=== PATIENT | female | born 2005 | race Caucasian/White ===

== ENCOUNTER 2024-09-12 13:06 | Outpatient (AMB) | payer OTHER, SELFPAY ==
--- NOTE | 2024-09-12 13:08 | MHC.PC.OV ---
Vital Signs 09/12/24 13:23 Height 5 ft 6 in Weight 229 lb BMI 37.0 BP 118/71 Blood Pressure Location Rt brachial Position Sitting Respiration 16 Pulse 68 Pulse Source Pulse Oximeter Temp 98.2 F Temp Source Oral Pulse Oximetry (%) 98 Oxygen Delivery Method Room Air Intake Visit Reasons: Requesting PE Intake Note: patient here for new patient visit Sustainability Engineer Required: No Is last menstrual period known: Yes Last menstrual period: 08/23/24 Post menopausal: No Patient : No Allergies No Known Allergies Allergy (Verified 09/12/24 13:41) Medication List - Last Reviewed 09/12/24 by Mabel Dent MA albuterol sulfate 90 mcg/actuation 2 puffs inhalation Q4-6H PRN budesonide-formoterol 160-4.5 mcg/actuation (Breyna) 2 puffs inhalation BID Tobacco use date assessed: 09/12/24 Dental Screening Dental Screen Date: 09/12/24 Did you have a dental visit in the last 12 months?: Yes Did you have a dental problem in the last 6 months where you did not have access to dental care?: No Was dental information given to patient?: Patient has dentist HPI HPI Comments History of Present Illness Details 19-year-old female, accompanied by her mother, presents to [facility]. Prior PCP? - [facility] Last office visit/CPE/labs - 2020- 2021 Acute issue(s) - Asthma: She is albuterol rescue inhaler and on Breyna puffs twice daily. - Reports anxiety and depressive symptoms. She notes bouts of not being motivated, sadness, loneliness, and anxiousness, worrying. Her symptoms have been ongoing for the past 10 years. She has never been diagnosed of anxiety and depression. She denies hospitalization for anxiety or depression. She notes h/o SI between ages [age]; No current SI. No HI. She has been talking to a therapist biweekly since 12/2023. She will continue therapy and not currently interested in pharmacotherapy for anxiety and depression. Myopia: Wears prescription glasses. Past Medical History - Autistic disorder, asthma, myopia Surgical History - None Family History - Dad: Asthma, bipolar, depression, anxiety, ADHD - MGF: Diabetes, alcohol abuse, substance abuse Social History - Nonsmoker. Does not vape. Drinks 1-2 mixed drink less than monthly. Consumes 5 mg of cannabis edible weekly - Has been making healthy dietary choices. Walks daily. Generally sleep well - she has not been sexually active for the past 2 months and has no concern for STDs Health maintenance - Last eye exam was 2 years ago at [facility]. Advised to follow up for an eye exam. She will sign a release for her her PCP to obtain her ophthalmology record - Last dental visit was over a year ago; encouraged to schedule an appointment with his dentist for routine dental care. - Unknown tetanus vaccine status. Health record not available; will review once become available - Has not been vaccinated for the flu this season; declines vaccination [facility] Medical History (Updated 09/12/24 @ 16:51 by Mars Myles CNP) Depression Anxiety Autistic disorder Asthma Family History (Updated 09/12/24 @ 14:30 by Mabel Dent MA) Maternal Grandfather Alcohol abuse Substance abuse Diabetes Father Mental illness in member of household Asthma Psychiatric disorder Bipolar 1 disorder Depression Anxiety ADHD Brother Asthma Sister Asthma Psychiatric disorder Social History Housing: Apartment Patient Tobacco Use Status: Never used Tobacco e-Cigarette/Vaping Use: Never Used Second Hand Smoke Exposure: No service: No Current occupational status: employed and student Current occupation: [employer] Current occupational exposures/hazards: No Cognitive needs: No Hearing needs: No Vision needs: Yes Female Reproductive History Menstrual Date of last menstrual period: 08/23/24 Questionnaire PHQ-9 Over the last 2 weeks, how often have you been bothered by any of the following problems? 1. Little interest or pleasure in doing things: several days 2. Feeling down, depressed, or hopeless: several days 3. Trouble falling or staying asleep, or sleeping too much: several days 4. Feeling tired or having little energy: several days 5. Poor appetite or overeating: several days 6. Feeling bad about yourself - or that you are a failure or have let yourself or your family down: several days 7. Trouble concentrating on things, such as reading the newspaper or watching television: several days 8. Moving or speaking so slowly that other people could have noticed. Or the opposite - being so fidgety or restless that you have been moving around a lot more than usual: several days 9. Thoughts that you would be better off or of hurting yourself in some way: not at all Total score: 8 Depression Screening Interpretation: Positive Depression Screening Done: Yes 01288 - PHQ-9 Billing: Yes Source: Developed by Drs. Holger Gallegos, Shiloh Kapoor, Chacho Tanner and colleagues, with an educational bartolo from [employer]. Thrive Questionnaire Date Thrive assessed: 09/12/24 I am a: Patient What is your living situation today?: I have a steady place to live Within the past 12 months, did the food you bought not last and you didn't have the money to get more?: Never true Within the past 12 months, did you worry whether your food would run out before you got money to buy more?: Never true Do you have trouble paying for medicines?: No Do you have trouble getting transportation to medical appointments?: No Do you have trouble paying your heating and electricity bill?: No Do you have trouble taking care of your child, family member or friend?: No Do you have trouble with day-to-day activities such as bathing, preparing meals, shopping, managing finances, etc.?: No Are you currently unemployed and looking for a job?: No Are you interested in more education?: Yes Please select the resources that you would like help with: None Currently or been in a relationship where the following occur: No concerns reported THRIVE Score: 0 AUDIT C Alcohol Use Questionnaire (AUDIT-C) 1. How often do you have a drink containing alcohol?: Monthly or less 2. How many drinks containing alcohol do you have on a typical day when you are drinking?: 3 or 4 3. How often do you have six or more drinks on one occasion?: Never Total Score: 2 Score Reviewed/Action Taken: Yes CIARRA-7 AMB Questionnaire CIARRA-7 Date CIARRA - 7 assessed: 09/12/24 Feeling nervous, anxious, or on edge: 1 = Several days Not being able to stop or control worryin = Several days Worrying too much about different things: 1 = Several days Trouble relaxin = Several days Being so restless that it is hard to sit still: 1 = Several days Becoming easily annoyed or irritable: 1 = Several days Feeling afraid as if something awful might happen: 1 = Several days Total CIARRA-7 score (0-4 normal; 5-9 mild; 10-14 moderate; 15-21 severe): 7 Source: Developed by Drs. Holger Gallegos, Shiloh Kapoor, Chacho Tanner and colleagues, with an educational bartolo from [employer]. CIARRA-7 Assessment Billing CIARRA-7 Assessment Tool: CIARRA-7 Assessment 83596 ACT Questionnaire In the past 4 weeks, how much of the time did your asthma keep you from getting as much done at work, school or at home?: None of the time During the past 4 weeks, how often have you had shortness of breath?: Not at all During the past 4 weeks, how often did your asthma symptoms wake you up at night or earlier than usual in the morning?: Not at all During the past 4 weeks, how often have you had to use your rescue inhaler or nebulizer medication?: Not at all How would you rate your asthma control during the past 4 weeks?: Completely controlled ACT Interpretation: Negative Score: 25 Review of Systems Const Details: Denies chills, Denies fatigue, Denies fever(s), Denies headache(s) and Denies weakness HEENT Denies change in vision, Denies dizziness, Denies headache(s), Denies hearing loss, Denies nasal congestion, Denies sinus pain, Denies sinus pressure and Denies sore throat Card Denies chest pain, Denies lightheadedness, Denies dyspnea and Denies other (palpitations) Resp Denies cough, Denies dyspnea and Denies wheezing GI Denies abdominal pain, Denies melena, Denies hematochezia, Denies change in bowel habits, Denies dyspepsia and Denies nausea Denies hematuria and Denies dysuria Musc Denies abnormal gait, Denies myalgias, Denies arthralgias, Denies numbness and Denies tingling Skin/Breast Denies rash, Denies unusual bruising and Denies wounds Neuro Denies abnormal gait, Denies dizziness, Denies headache(s), Denies memory loss, Denies numbness, Denies Sensory deficit (Neuro), Denies tingling and Denies weakness Psych Denies anxiety, Denies depression and Denies memory loss Endo Denies cold intolerance, Denies fatigue, Denies heat intolerance, Denies polydipsia and Denies polyuria Miki/Lymph Denies easy bleeding and Denies easy bruising Aller/Immun Denies wheezing Physical exam (Primary Care) Vital Signs: Last Vital Signs Temp 98.2 F 09/12/24 13:23 Pulse 68 09/12/24 13:23 Resp 16 09/12/24 13:23 BP 118/71 09/12/24 13:23 Pulse Ox 98 09/12/24 13:23 Oxygen Delivery Method Room Air 09/12/24 13:23 BMI result Body Mass Index 37.0 Tobacco/Smoking Status: Tobacco use Status Tobacco use date assessed 09/12/24 09/12/24 13:22 Patient Tobacco Use Status Never used Tobacco 09/12/24 13:22 e-Cigarette/Vaping Use Never Used 09/12/24 13:22 PHQ-9: PHQ-9 Score PHQ-9: Total score 8 09/12/24 14:30 Depression Screening Interpretation: Positive Thrive Assessment: Date of Thrive Assessment Date Thrive assessed 09/12/24 09/12/24 13:09 Currently or been in a relationship where the following occur: No concerns reported Const Other: General: no acute distress, well developed, alert and awake Nutritional Appearance: well nourished Orientation/consciousness: patient oriented x3 HENMT Head: Yes normocephalic and Yes atraumatic Ears: hearing grossly normal bilaterally and TM's normal bilaterally General nose exam: Normal external nose present and Normal nares present Mouth: Normal oral and palatal mucosa present and moist mucous membranes Teeth and gingiva: dentition normal Throat: Yes oropharynx normal Eyes Pupils: Equal, round and reactive pupils present and Pupil accommodation reflex normal EOM: EOMs intact bilaterally Neck Neck: Yes normal visual inspection, Yes no lymphadenopathy and Yes trachea midline Thyroid: Thyroid normal Carotids: no bruits Lymphatic: no lymphadenopathy noted Chest Chest palpation & inspection: normal inspection of the chest Resp Effort & Inspection: normal respiratory effort Auscultation: clear to auscultation bilaterally Cardio Rate: regular rate Rhythm: regular rhythm Heart sounds: S1 normal heart sound present, S2 normal heart sound present, no gallops, no murmurs and no rubs Bruits: no abdominal aortic bruits and no carotid bruits GI Palpation (GI): No Abdominal aortic bruit present, Soft to palpation, nontender, No hepatosplenomegaly present and No Rebound tenderness present Auscultation: normal bowel sounds General: Yes no CVA tenderness Back/Spine/Pelvis Back: no CVA tenderness Cervical Spine: cervical ROM normal and No Cervical spine tenderness Thoracic/Lumbar Spine: thoraco-lumbar ROM normal, No pain with thoraco-lumbar ROM, No thoracic spinal tenderness and No lumbar spinal tenderness Skin General: warm and dry. Normal skin color. Normal skin turgor Lesions: no lesions Rashes: no rashes Trauma: no lacerations or abrasions Wounds: no wounds Nails: normal Neuro General: patient oriented x3, gait normal and CN's II-XI intact bilaterally Cranial nerves: Yes Equal, round and reactive pupils present Cognition (Neuro): normal cognition Gait exam (Neuro): Normal gait present Motor exam (neuro): 5/5 motor strength present throughout Sensory Exam: No Sensory deficit (Neuro) Deep tendon reflexes (DTR's): Right patellar reflex intensity grade: 2+ and Left patellar reflex intensity grade: 2+ Extrem General: Yes normal to inspection, No edema and No calf tenderness Psych Appearance: grossly normal Affect: normal affect Attitude: cooperative Thought process: Normal thought process present Coding Level of Care Code Est Pt Prev Care 18-39y(25568) Diagnoses Normal physical examination, routine Z00.00 Asthma J45.909 Anxiety and depression F41.9; F32.A Obesity (BMI 30-39.9) E66.9 Myopia H52.10 Laboratory tests ordered as part of a complete physical exam (CPE) Z00.00 Additional Codes Asthma Control Questionnaire - ACT Interpretation: Negative ([id number]) CIARRA-7 Assessment Billing - CIARRA-7 Assessment Tool: CIARRA-7 Assessment 34777 ([id number]) PHQ-9 - 28049 - PHQ-9 Billing: Yes ([id number]) Assessment & Plan Assessment & Plan (1) Normal physical examination, routine: Code(s): Z00.00 - Encounter for general adult medical examination without abnormal findings Category: Medical Plan: No significant functional limitation noted. Perform lab work and follow-up for telehealth visit in 2-3 weeks for labs review. Return sooner with symptoms or concerns. Verbalized understanding and agreed with treatment plan. (2) Asthma: Code(s): J45.909 - Unspecified asthma, uncomplicated Category: Medical Plan: ACT score is 25, well-controlled asthma. Continue current treatment regimen. Follow-up with symptoms or concerns. Verbalized understanding and agreed with the plan. (3) Anxiety and depression: Code(s): F41.9 - Anxiety disorder, unspecified; F32.A - Depression, unspecified Category: Medical Plan: She has been experiencing bouts of not being motivated, sadness, loneliness, and anxiousness, worrying for the past 10 years. She has never been diagnosed of anxiety and depression. No hospitalization for anxiety or depression. She has h/o SI between ages [age]; No current SI. No HI. She has been talking to a therapist biweekly since 12/2023. She will continue therapy and not currently interested in pharmacotherapy for anxiety and depression. PHQ-9 and CIARRA-7 scores revealed mild depression and anxiety. Routine exercise encouraged. Continue follow-up with therapist as planned. Follow-up with worsening or new symptoms. Verbalized understanding and agreed with treatment plan. (4) Obesity (BMI 30-39.9): Code(s): E66.9 - Obesity, unspecified Category: Medical Plan: She currently weighs 229 lb, BMI is 37.0. Healthy diet and routine exercise encouraged. She has interested in a referral to germ drier/dietitian. Referred to [facility] germ drier/dietitian. Follow-up as needed. Verbalized understanding and agreed with the plan. (5) Myopia: Code(s): H52.10 - Myopia, unspecified eye Category: Medical Plan: She wears prescription glasses. Last eye exam was 2 years ago. Advised to follow up for an eye exam. She will sign a release for her her PCP to obtain her ophthalmology record. (6) Laboratory tests ordered as part of a complete physical exam (CPE): Code(s): Z00.00 - Encounter for general adult medical examination without abnormal findings Category: Medical Plan: Fasting labs ordered as part of a complete physical exam. Advised to fast for at least 10 hours before getting labs drawn. May drink water Verbalized understanding and agreed with treatment plan. Orders: Orders Comprehensive [place]. Panel Fast Today Z00.00 - Encounter for general adult medical examination without abnormal findings Lipid Panel Today Z00.00 - Encounter for general adult medical examination without abnormal findings TSH reflex Free T4 Today Z00.00 - Encounter for general adult medical examination without abnormal findings Vitamin D 25-OH Total Today Z00.00 - Encounter for general adult medical examination without abnormal findings Complete Blood Count Auto Diff Today Z00.00 - Encounter for general adult medical examination without abnormal findings UA CC w/rflx Micro + Cult Today Z00.00 - Encounter for general adult medical examination without abnormal findings Referrals Nutrition/Dietitian Referral E66.9 - Obesity, unspecified Medications: New albuterol sulfate 90 mcg/actuation 2 puffs inhalation Q4-6H PRN 8.5 grams 3RF shortness of breath or wheezing budesonide-formoterol 160-4.5 mcg/actuation (Breyna) 2 puffs inhalation BID 10.2 grams 3RF 30 days
[2024-09-12 13:23] VITALS: BP 118/71; PULSE 68; RESP 16; TEMP 36.8; O2SAT 98; BMI 37.0
== END 2024-09-12 14:14 | disposition home or self-care (01) ==
LOC: HO.HMCFM 13:07
PROVIDERS: PCP Nurse Practitioner Family; Visit Provider Nurse Practitioner Family
DX: Z00.00 Encounter for general adult medical examination without abnormal findings (principal); J45.909 Unspecified asthma, uncomplicated; E66.9 Obesity, unspecified; Z68.37 Body mass index [BMI] 37.0-37.9, adult; F41.9 Anxiety disorder, unspecified; F32.A Depression, unspecified; H52.10 Myopia, unspecified eye

== ENCOUNTER → 2024-09-12 13:06 | Outpatient (BNVA) | payer OTHER, SELFPAY | PROVIDERS: PCP Nurse Practitioner Family; Visit Provider Nurse Practitioner Family | DX: Z00.00 Encounter for general adult medical examination without abnormal findings (principal); J45.909 Unspecified asthma, uncomplicated; F41.9 Anxiety disorder, unspecified; F32.A Depression, unspecified; E66.9 Obesity, unspecified; Z68.37 Body mass index [BMI] 37.0-37.9, adult; H52.10 Myopia, unspecified eye | CPT/HCPCS: 96127; 96160 ==

== ENCOUNTER 2024-09-30 08:42 | Outpatient (REF) | payer OTHER, SELFPAY ==
[2024-09-30 09:25] LABS: MANUAL DIFF FLAG NO
[2024-09-30 10:43] LABS: Basophils Percent Auto 0.6 % (0-2); Eosinophils Absolute Auto 0.3 X10*3/uL (0.0-0.4); Eosinophils Percent Auto 4.5 % (0-4); Hematocrit 39.4 % (37.0-47.0); Hemoglobin 12.8 g/dl (12.0-16.0); Imm Gran Abs Auto 0.02 X10*3/uL (0.00-0.03); Imm Gran Pct Auto 0.3 % (0.0-0.4); Lymphocytes Absolute Auto 2.2 X10*3/uL (1.2-4.9); Lymphocytes Percent Auto 33.3 % (20-40); Mean Corpuscular HGB Conc 32.5 g/dl (31.0-35.0); Mean Corpuscular Hemoglobin 29.5 pg (27.0-33.0); Mean Corpuscular Volume 90.8 fL (80.0-98.0); Monocytes Absolute Auto 0.4 X10*3/uL (0.1-1.2); Monocytes Percent Auto 6.5 % (2-11); Neutrophils Absolute Auto 3.6 x10*3/uL (2.0-8.3); Neutrophils Percent Auto 54.8 % (45-73); Platelet Count 267 X10*3/uL (160-400); Red Blood Count 4.34 X10*6/uL (4.20-5.50); Red Cell Distribution Width 12.8 % (11.0-16.0); White Blood Count 6.6 X10*3/uL (4.8-10.8)
[2024-09-30 10:55] LABS: Appearance Urine Clear; Color Urine Yellow; Glucose Urine UA Negative (Negative); Leukocyte Esterase Urine Trace (Negative); Nitrite Urine Negative (Negative); PH 6.5 (5.0-9.0); UMIC TRIGGER UACC YES; Urine Blood Large (3+) (Negative); Urine Ketones Negative (Negative); Urine Protein Negative (Neg-Trace)
[2024-09-30 11:02] LABS: Bacteria Urine None Seen (None Seen); Hyaline Casts Urine 0-2 /LPF (0-2); RBC Urine >20 /HPF (0-2); Squamous Epithelial Cell Urine 0-2 /HPF (0-2); WBC Urine 0-5 /HPF (0-5)
[2024-09-30 11:27] LABS: Alanine Aminotransferase 20 U/L (0-31); Albumin Level 4.3 g/dL (3.5-5.0); Alkaline Phosphatase 67 U/L (39-117); Anion Gap 13 (12-20); Aspartate Amino Transferase 19 U/L (5-31); Bilirubin Total 0.4 mg/dL (0.0-1.0); Blood Urea Nitrogen 11 mg/dL (9-16); Calcium 8.8 mg/dL (8.4-10.2); Carbon Dioxide 24 mmol/L (22-29); Chloride 109 mmol/L (96-108); Cholesterol 149 mg/dL (<200); Estimated Glomerular Filt Rate > 60; Glucose Fasting 91 mg/dL (60-99); HDL Cholesterol 50 mg/dL (>40); LDL Cholesterol Calculated 87 mg/dL (<100); Potassium 4.5 mmol/L (3.3-5.1); Sodium 141 mmol/L (135-145); TSH reflex Free T4 2.35 uIU/mL (0.32-4.0); Total Protein 7.1 g/dL (6.5-8.0); Triglycerides 63 mg/dL (<150); Vitamin D 25-OH Total 16.6 ng/mL (>30)
== END 2024-09-30 08:43 | disposition home or self-care (01) ==
LOC: HO.LAB 08:42
PROVIDERS: PCP Nurse Practitioner Family; Visit Provider Nurse Practitioner Family
DX: Z00.00 Encounter for general adult medical examination without abnormal findings (principal)
CPT/HCPCS: 36415; 80053; 80061; 81001; 82306; 84443; 85025

== ENCOUNTER 2024-10-17 10:59 | Outpatient (AMB) | payer OTHER, SELFPAY ==
--- NOTE | 2024-10-17 10:56 | A.OFFPC_ITS ---
[facility] Intake Note: patient here for 2-3 wks telehealth follow up for lab review Tool Dresser Required: No Is last menstrual period known: Yes Last menstrual period: 10/03/24 Post menopausal: No Patient : No Allergies No Known Allergies Allergy (Verified 10/17/24 10:56) Tobacco use date assessed: 10/17/24 Dental Screening Dental Screen Date: 10/17/24 Did you have a dental visit in the last 12 months?: Yes Did you have a dental problem in the last 6 months where you did not have access to dental care?: No Was dental information given to patient?: Patient has dentist HPI HPI Comments History of Present Illness Details 19-year-old female [facility] review of recent lab results. She offers no complaints and denies acute symptoms at this time. [facility] Medical History (Updated 10/17/24 @ 12:13 by Mars Myles CNP) Depression Anxiety Autistic disorder Asthma Family History (Updated 09/12/24 @ 14:30 by Mabel Dent MA) Maternal Grandfather Alcohol abuse Substance abuse Diabetes Father Mental illness in member of household Asthma Psychiatric disorder Bipolar 1 disorder Depression Anxiety ADHD Brother Asthma Sister Asthma Psychiatric disorder Social History Housing: Apartment Patient Tobacco Use Status: Never used Tobacco e-Cigarette/Vaping Use: Never Used Second Hand Smoke Exposure: No Patient : No service: No Current occupational status: employed and student Current occupation: [employer] Current occupational exposures/hazards: No Cognitive needs: No Hearing needs: No Vision needs: Yes Female Reproductive History Menstrual Date of last menstrual period: 10/03/24 Questionnaire Thrive Questionnaire Date Thrive assessed: 09/09/24 I am a: Patient What is your living situation today?: I have a steady place to live Within the past 12 months, did the food you bought not last and you didn't have the money to get more?: Never true Within the past 12 months, did you worry whether your food would run out before you got money to buy more?: Never true Do you have trouble paying for medicines?: No Do you have trouble getting transportation to medical appointments?: No Do you have trouble paying your heating and electricity bill?: No Do you have trouble taking care of your child, family member or friend?: No Do you have trouble with day-to-day activities such as bathing, preparing meals, shopping, managing finances, etc.?: No Are you currently unemployed and looking for a job?: No Are you interested in more education?: Yes Please select the resources that you would like help with: None Currently or been in a relationship where the following occur: No concerns reported THRIVE Score: 0 CIARRA-7 AMB Questionnaire CIARRA-7 Date CIARRA - 7 assessed: 09/12/24 Source: Developed by Drs. Holger Gallegos, Shiloh Kapoor, Chacho Tanner and colleagues, with an educational bartolo from [employer]. Review of Systems Const Details: Denies chills, Denies fatigue, Denies fever(s), Denies headache(s) and Denies weakness Cardiac Denies chest pain, Denies claudication, Denies leg edema, Denies lightheadedness, Denies palpitations, Denies dyspnea, Denies dyspnea on exertion, Denies orthopnea and Denies other (Loss of consciousness) Resp Denies cough, Denies excessive phlegm production, Denies dyspnea, Denies dyspnea on exertion, Denies snoring and Denies wheezing Physical exam (Primary Care) Tobacco/Smoking Status: Tobacco use Status Tobacco use date assessed 10/17/24 10/17/24 10:58 Patient Tobacco Use Status Never used Tobacco 10/17/24 10:58 e-Cigarette/Vaping Use Never Used 10/17/24 10:58 Thrive Assessment: Date of Thrive Assessment Date Thrive assessed 09/09/24 10/17/24 10:58 Currently or been in a relationship where the following occur: No concerns reported Const Other: Patient is alert and oriented x3. Telehealth Telehealth Telehealth Platform: Telephone Location of provider rendering services: practice address Location of patient: address on file Patient Identification confirmed using: Name, : Yes Telehealth method: voice only Patient verbally consented to treatment: Yes Patient verbally consented to billing insurance company: Yes Patient informed of any privacy concerns related to visit: Yes Coding Level of Care Code Tele Est Pt Level 3 (13380) Diagnoses Vitamin D deficiency E55.9 Time Spent (min) 10 Assessment & Plan Assessment & Plan (1) Vitamin D deficiency: Code(s): E55.9 - Vitamin D deficiency, unspecified Category: Medical Plan: Recent vitamin-D level is significantly low, 16.6. Vitamin D3 1250 mcg daily ordered; advised to take as prescribed. Advised to get vitamin-D blood work done 2-3 days before next visit. Follow-up for telehealth visit in eight weeks. Return sooner with symptoms or concerns. Verbalized understanding and agreed with treatment plan. Orders: Orders Vitamin D 25-OH Total 2 Months E55.9 - Vitamin D deficiency, unspecified Medications: New cholecalciferol (vitamin D3) 1,250 mcg PO QWEEK 8 weeks 8 tabs 0RF
--- OUTSIDE RECORDS SUMMARY | 2024-10-17 12:46 | XMS_ITS | Clinical Summary ---
Author Organization [address] Address [address] [place] [phone] Phone Care Team Providers Care [employer]um [employer] Supervisor Name Role Phone Physician, Pcp Unknown Primary Care Provider Adelina vailable Medical History Medical History Date Comments Wheezing 03.12.12 DX:Wheezing; COM MENT: see visit. Family History Medical History Relation Name Comments Allergies Father enviormental Asthma Father Relation Name Status Comments Father Alive 08/24/80 Mother Alive 04/07/83 Social History Tobacco Use Types Packs/Day Years Used Date Smoking Tobacco: Never Smokeless Tobacco: Never Alcohol Use Standard Drinks/Week Comments Not Asked 0 (1 standard drink = 0.6 oz pur e alcohol) Comments Unknown Sex and Gender Information Value Date Recorded Sex Assigned at Not on file Legal Sex Female 8:31 AM EST Gender Identity Not on file Sexual Orientation Not on file Obstetrics History Last Filed Vital Signs Vital Sign Reading Time Taken Comments Blood Pressure 120/80 11/22/2020 1:24 PM EDT Pulse 80 11/22/2020 1:24 PM EDT Temperature - - Respiratory Rate - - Oxygen Saturation - - Inhaled Oxygen Concentration - - Weight 90.8 kg (200 lb 3.2 oz) 11/22/2020 1:24 P M EDT Height 167.6 cm (5' 6 ) 11/22/2020 1:24 PM EDT Body Mass Index 32.31 11/22/2020 1:24 PM EDT Plan of Treatment Health Maintenance Due Date Last Done Comments Pneumococcal Vaccine: Pediatrics (0 to 5 Years) and At-Risk Patients (6 to 64 Years) (1 of 1 - PPSV23) 2010 09/07/2005, 06/09/2005, 03/09/2005, Additional history exists HPV Vaccines (2 - 2-dose series) 08/31/2019 03/02/2019 Meningococcal B Vaccine (1 of 2 - Standard) 2020 COVID-19 Vaccine ( season) 2024 Annual Well Child Visit (3-21 years old) 05/18/2024 11/22/2020, 03/02/2019, 02/18/2018, Additional history exists Depression Screening 05/18/2024 HIV Screening 05/18/2024 Hepatitis C Screening 05/18/2024 Social Influencers of Health Screening 05/18/2024 Influenza Vaccine (Season Ended) 2025 05/30/2020, 05/06/2010, 05/04/2008, Additional history exists Gonorrhea/Chlamydia Screening 05/17/2025 05/17/2024 DTaP,Tdap,and Td Vaccines (7 - Td or Tdap) 01/23/2026 01/24/2016, 09/21/2008, 12/25/2005, Additional history exists Hepatitis B Vaccines Completed 03/09/2005, 2004, 2004, Additional history exists HIB Vaccines Completed 12/25/2005, 02/19, 2004, Additional history exists IPV Vaccines Completed 09/21/2008, 02/19, 03/09/2005, Additional history exists MMR Vaccines Completed 09/21/2008, 12/25/2005 Varicella Vaccines Completed 09/21/2008, 09/07/2005 Meningococcal ACWY Vaccine Completed 11/22/2020, Hepatitis A Vaccines Aged Out No long er eligible based on patient's age to complete this topic RSV Immunization Patients Under 20 months Aged Out No longer eligible based on patient's age to complete this topic Procedures Procedure Name Priority Date/Time Associated Diagnosis Comments CHLAMYDIA TRACHOMATIS AND NEISSERIA GONORRHOEAE PCR Routine 05/17/2024 9:39 AM EST Encounter for screening for infections with a predominantly sexual mode of transmission from Last 3 Months or Most Recently Relevant to Health Maintenance Results * Chlamydia trachomatis and Neisseria gonorrhoeae molecular study (05/17/2024 9:39 AM EST) Neisseria gonorrhoeae PCR Negative Negative LAB MOLECULAR DIAGNOSTICS METHOD 05/19/2024 12:33 PM EST [facility] Chlamydia trachomatis PCR Negative Negative LAB MOLECULAR DIAGNOSTICS METHOD 05/19/2024 12:33 PM EST [facility] Swab Cervix uteri structure / Unknown 05/17/2024 9:39 AM EST 05/17/2024 3:38 PM EST us Nicolette Aldana MD LAB MICROBIOLOGY - GENER AL ORDERABLES Final Result [facility] [place] [address] [place] [address], from Last 3 Months or Most Recently Relevant to Health Maintenance Insurance [employer] Care Teams [employer] Supervisor Relationship Specialty Start Date End Date Physician, Pcp Unknown PCP - General 05/17/24
--- OUTSIDE RECORDS SUMMARY | 2024-10-17 12:46 | XMS_ITS | Encounter Summary ---
Author Organization [facility] Address [address] [place] [id number] Care Team Providers Care Data Entry Operator Name Role Phone Unavailable Primary Care Provider Unavailabl e Encounter Details Date Type Department Care Team (Latest Contact Info) Description 08/30/2020 Lab Requisition [facility] [address] Through [address] [place] [address] [address] [place] [address] Sandeep Castellano MD [address] [place] [id number] Encounter for laboratory testing for COVID-19 virus Social History Tobacco Use Types Packs/Day Years Used Date Smoking Tobacco: Never Assessed Comments Unknown Sex and Gender Information Value Date Recorded Sex Assigned at Not on file Legal Sex Female 1:05 PM EST Gender Identity Not on file Sexual Orientation Not on file documented as of this encounter Plan of Treatment Not on file documented as of this encounter Procedures Procedure Name Priority Date/Time Associated Diagnosis Comments COVID-19 (SARS-COV-2) - [facility] LAB Routine 08/30/2020 1:07 PM EST Encounter for laboratory testing for COVID-19 virus [ICD-10-CM] documented in this encounter Results * (ABNORMAL) COVID-19 (SARS-COV-2) (SEMA4) (08/30/2020 1:07 PM EST) COVID-19 RT-PCR DETECTED( A) Not-Detec nkechi 08/31/2020 1:16 PM EST [facility] Comment:Interpretation: The viral RNA was detected, consistent with the diagnosis of COVID-19. Correlation with clinical findings is highly recommended.Final report signed by Jennifer Ireland, Ph.D., Laboratory DirectorTests performed at [facility] Nasopharyngeal swab / Unknown 08/30/2020 1:07 PM EST 08/30/2020 1:07 PM EST Narrative MERYLPhil FARAH - 08/31/2020 1:16 PM EST Performed by [facility]., [address] [place] [address], CLIA# [id number] and [place] License# [id number] us Sandeep Castellano MD MICROBIOLOGY - GENERAL ORDER CURT Final Result MARTI FARAH documented in this encounter Visit Diagnoses Diagnosis Encounter for laboratory testing for COVID-19 virus documented in this encounter
--- OUTSIDE RECORDS SUMMARY | 2024-10-17 12:46 | XMS_ITS | Clinical Summary ---
Author Organization [facility] Address [address] [place] [address] Care Team Providers Care Cargo Operations Agent Name Role Phone Unavailable Primary Care Provider Unavailabl e Social History Tobacco Use Types Packs/Day Years Used Date Smoking Tobacco: Never Assessed Comments Unknown Sex and Gender Information Value Date Recorded Sex Assigned at Not on file Legal Sex Female 1:05 PM EST Gender Identity Not on file Sexual Orientation Not on file Plan of Treatment Health Maintenance Due Date Last Done Comments Hepatitis C Virus Screening 2004 HIV Screening 2017 HPV Vaccines (1 - 3-dose series) 09/04/2019 DTaP/Tdap/Td Vaccines (1 - Tdap) 09/04/2023 Hepatitis B Vaccines (1 of 3 - 19+ 3-dose series) 09/04/2023 COVID-19 Vaccine ( - 2023-2 5 season) 2024 Pneumococcal Vaccine: Pediat kwame (0-5 Years) and At-Risk Patients (6 to 49 Years) Aged Out No longer eligible b ased on patient's age to complete this topic
--- OUTSIDE RECORDS SUMMARY | 2024-10-17 12:46 | XMS_ITS | Encounter Summary ---
Author Organization [facility] Address [address] [place] [address] Care Team Providers Care Display Designer Outside Name Role Phone Physician, Pcp Unknown Primary Care Provider Adelina vailable Encounter Details Date Type Department Care Team (Latest Contact Info) Description 05/17/2024 Lab Requisition [facility] Lab [address] [place] [address] Nicolette Aldana MD [address] [phone] Encounter for screening for infections with a predominantly sexual mode of transmission Social History Tobacco Use Types Packs/Day Years [...] with a predominantly sexual mode of transmission documented in this encounter Results * Chlamydia trachomatis and Neisseria gonorrhoeae molecular study (05/17/2024 9:39 AM EST) Neisseria gonorrhoeae PCR Negative Negative LAB MOLECULAR DIAGNOSTICS METHOD 05/19/2024 12:33 PM EST [facility] Chlamydia trachomatis PCR Negative Negative LAB MOLECULAR DIAGNOSTICS METHOD 05/19/2024 12:33 PM EST [facility] Swab Cervix uteri structure / Unknown 05/17/2024 9:39 AM EST 05/17/2024 3:38 PM EST us Nicolette Aldana MD LAB MICROBIOLOGY - GENER AL ORDERABLES Final Result [facility] [address] [place] [address], documented in this encounter Visit Diagnoses Diagnosis Encounter for screening for infections with a predominantly sexual mode of transmission documented in this encounter Care Teams Display Designer Outside Relationship Specialty Start Date End Date Physician, Pcp Unknown PCP - General 05/17/24 documented as of this encounter
== END 2024-10-17 12:22 | disposition home or self-care (01) ==
LOC: HO.HMCFM 10:59
PROVIDERS: PCP Nurse Practitioner Family; Visit Provider Nurse Practitioner Family
DX: E55.9 Vitamin D deficiency, unspecified (principal)

== ENCOUNTER → 2024-10-17 10:59 | Outpatient (BNVA) | payer OTHER, SELFPAY | PROVIDERS: PCP Nurse Practitioner Family; Visit Provider Nurse Practitioner Family | DX: Z13.89 Encounter for screening for other disorder (principal) ==